=== PATIENT | female | born 1990 ===

== ENCOUNTER 2017-03-12 21:00 | Inpatient (IN) | payer MEDICAID ==
[~2017-03-12] VITALS: Ht 165.1 cm; Wt 79.1 kg
[2017-03-12 21:30] VITALS: BP 124/81; PULSE 73; TEMP 98.7
[2017-03-12 21:59] VITALS: BP 124/81; PULSE 73; TEMP 98.7
[2017-03-12 22:00] VITALS: BP 126/69; PULSE 75
[2017-03-12 22:06] LABS: BASO % 0.4 % (0.0-2.0); EOS # 0.1 (0.0-0.7); EOS % 1.1 % (0-4.0); GRAN # 5.3 (1.4-6.5); GRAN % 64.6 % (42.2-75.2); HEMOGLOBIN 12.9 g/dl (12.5-16.0); LYMPH # 1.8 (1.2-3.4); LYMPH % 21.5 % (20.0-51.0); MEAN CELL VOLUME 90 fl (80.0-100.0); MEAN CORPUSCULAR HEMOGLOBIN 32 pg (27.0-31.0); MEAN CORPUSCULAR HGB CONC 35 g/dl (33.0-37.0); MEAN PLATELET VOLUME 11.1 fl (7.4-10.4); MONO # 0.9 (0.1-0.6); MONO % 11.1 % (1.7-9.3); PLATELET COUNT 163 K/mm3 (130-400); RED BLOOD COUNT 4.07 M/mm3 (4.10-5.30); REDCELL DISTRIBUTION WIDTH-CV 12.9 % (11.5-14.5); WHITE BLOOD COUNT 8.2 K/mm3 (4.8-10.8)
[2017-03-12 22:08] LABS: HEMATOCRIT 36.8 % (37.0-47.0)
[2017-03-12] MEDS ORDERED: PRENATAL (22:14)
[2017-03-12] MEDS ORDERED: IRON325 MG PO (22:15)
[2017-03-12 22:30] VITALS: BP 128/77; PULSE 70
[2017-03-12 23:15] VITALS: BP 158/84; PULSE 90
[2017-03-12 23:30] VITALS: BP 172/78; PULSE 81
[2017-03-13] VITALS (24 sets, daily range): BP systolic 116–155; BP diastolic 56–88; PULSE 67–90; TEMP 97.6–98.2
[2017-03-13] MEDS ORDERED: MOTRIN 800800 MG/TAB PO (11:50)
[2017-03-14 01:30] VITALS: BP 118/73; PULSE 80; TEMP 97.4
[2017-03-14 08:00] VITALS: BP 130/70; PULSE 73; TEMP 97.9
[2017-03-14 16:00] VITALS: BP 120/65; PULSE 79; TEMP 98.1
== END 2017-03-14 18:00 | disposition home or self-care (01) | DRG 775 ==
LOC: LDRO 21:00 → LDR 21:56 → OB 03-13 08:15 → LDRO 03-18 14:26
PROVIDERS: Obstetrics & Gynecology
PROC: 10E0XZZ Delivery of Products of Conception, External Approach (ICD-10-PCS; principal; 2017-03-12)
PROC: 0HQ9XZZ Repair Perineum Skin, External Approach (ICD-10-PCS; 2017-03-12)
DX: O99.824 Streptococcus B carrier state complicating childbirth (principal); O70.0 First degree perineal laceration during delivery; O75.89 Other specified complications of labor and delivery; Z3A.39 39 weeks gestation of pregnancy; Z37.0 Single live birth
CPT/HCPCS: J2210; J2540; J2590; J2795; J7120

== ENCOUNTER → 2017-04-27 | Outpatient (REF) ==
[~2017-04-27] MED LIST: IRON325 MG PO; MOTRIN 800800 MG/TAB PO; PRENATAL
== END ==
LOC: WSOH 15:12
DX: Z00.00 Encounter for general adult medical examination without abnormal findings (principal)